=== PATIENT | male | born 1940 | race Caucasian/White ===

== ENCOUNTER 2016-11-26 05:57 | Day surgery (SDC) | payer BC, OTHER ==
[~2016-11-26] VITALS: Ht 165.1 cm; Wt 61.2 kg
[2016-11-26] VITALS (9 sets, daily range): BP systolic 100–120; BP diastolic 61–74
[~2016-11-26 05:57] MED LIST: ASPIR 8181 MG ORAL; Akten 3.5% 1ml Btl ONE; BUSPAR10 MG ORAL; Diclofenac Sod 0.1% Op Soln ONE; Gatifloxacin Opth Solution 0.5% ONE; Phenylephrine 2.5% Op Soln ONE; TAMSULOSIN HCL0.4 MG ORAL; Tobradex Opth Susp 2.5ml ONE; Tropicamide 1% Opth Soln ONE; WELLBUTRIN SR100 MG ORAL; vitamin b12 PO
[2016-11-26] MEDS: Akten 3.5% 1ml Btl LEFT EYE SCH ×3 (06:00→06:52)
[2016-11-26] MEDS: Gatifloxacin Opth Solution 0.5% LEFT EYE SCH ×3 (06:00→06:10)
[2016-11-26] MEDS: Tropicamide 1% Opth Soln LEFT EYE SCH ×3 (06:35→06:52)
[2016-11-26] MEDS: Tobradex Opth Susp 2.5ml LEFT EYE SCH ×3 (06:36→06:52)
[2016-11-26] MEDS: Diclofenac Sod 0.1% Op Soln LEFT EYE SCH ×3 (06:36→06:52)
[2016-11-26] MEDS: Phenylephrine 2.5% Op Soln LEFT EYE SCH ×3 (06:36→06:52)
[2016-11-26] MEDS ORDERED: acetaZOLAMIDE 500mg Inj ONE (07:02)
[2016-11-26] MEDS ORDERED: Dexamethasone 4mg/ml vial ONE (07:02)
[2016-11-26] MEDS ORDERED: BSS 500ml btl ONE (07:02)
[2016-11-26] MEDS ORDERED: Lidocaine 1% MPF 10mg/ml 5ml ONE (07:02)
[2016-11-26] MEDS ORDERED: Carbachol 0.01% Op Soln 1.5ml vial ONE (07:03)
[2016-11-26] MEDS ORDERED: Povidone-Iodine 5% opth solution ONE (07:03)
[2016-11-26] MEDS ORDERED: Sodium Hyaluronate 14 mg/ml 0.85ml ONE (07:04)
[2016-11-26] MEDS ORDERED: BSS 15ml BTL ONE (07:04)
[2016-11-26] MEDS ORDERED: EPINEPHrine 1mg/1ml Amp ONE (07:04)
[2016-11-26] MEDS ORDERED: Midazolam 2mg/2ml Inj ONE (07:30)
[2016-11-26] MEDS ORDERED: Sterile Water Irrig 1000ml IRRIG ONE (07:30)
[2016-11-26] MEDS ORDERED: NS Irrig 1000ml ONE (07:30)
[2016-11-26] MEDS ORDERED: fentaNYL 100 mcg/2 mL IV ONE (07:30)
[2016-11-26] MEDS ORDERED: LR 1000ml ONE (07:30)
--- NOTE | 2016-11-26 07:42 | Pre-Procedure Note/Attestation ---
Pre-Procedure Note/Attestation Complete Prior to Procedure Planned Procedure: left Procedure Narrative: cataract extraction with implant left eye Indications for Procedure Pre-Operative Diagnosis: cataract left eye Attestation I attest that I discussed the nature of the procedure; its benefits; risks and complications; and alternatives (and the risks and benefits of such alternatives ), prior to the procedure, with the patient (or the patient's legal sales representative publications). I attest that, if there was a reasonable possibility of needing a blood transfusion, the patient (or the patient's legal sales representative publications) was given the [facility] standardized written summary, pursuant to the [place] Rud[place] Blood Safety Act ([place] Health and Safety Code # 1645, as amended). I attest that I re-evaluated the patient just prior to the surgery and that there has been no change in the patient's H&P, except as documented below: DULCE BLOCK Nov 26, 2016 07:42
--- NOTE | 2016-11-26 08:17 | Brief Operative Note ---
Immediate Post Operative Note Operative Note Pre-op Diagnosis: cataract left eye Procedure: phacoemulsification of cataract with implant left eye Post-op Diagnosis: same as pre-op Surgeon: dulce salcido C T Tech: none Anesthesiologist: radha archer crna Anesthesia: MAC Specimen: none Complications: none Condition: stable Estimated Blood Loss: none Drains: none Implant(s) used?: Yes DULCE SALCIDO Nov 26, 2016 08:17
--- NOTE | 2016-11-26 08:20 | Immediate Post-Op Evaluation ---
Immediate Post-Op Evalulation Immediate Post-Op Evalulation Procedure: cataract extraction left eye Date of Evaluation: Nov 26, 2016 Time of Evaluation: 08:15 IV Fluids: 200 Blood Pressure Systolic: 112 Blood Pressure Diastolic: 60 Pulse Rate: 60 Respiratory Rate: 14 O2 Sat by Pulse Oximetry: 98 Nausea: No Vomiting: No Complications none Patient Status: awake, reacts, patent Hydration Status: adequate Drug: none ERINRIKARSON FINNEY CRNA Nov 26, 2016 08:20
--- NOTE | 2016-11-26 08:21 | Anethesia Preoperative Eval ---
Anesthesia Pre-op PMH/ROS General Date of Evaluation: Nov 26, 2016 Time of Evaluation: 07:15 Anesthesiologist: gianni ASA Score: ASA 2 Mallampati Score Class I : Soft palate, uvula, fauces, pillars visible Class II: Soft palate, uvula, fauces visible Class III: Soft palate, base of uvula visible Class IV: Only hard plate visible Mallampati Classification: Class II Surgeon: omari Diagnosis: cataract Surgical Procedure: cataract extraction with IOL Anesthesia History: none Family History: no anesthesia problems Allergies: Coded Allergies: MILK (Verified Allergy, Unknown, 05/02/15) Medications: see eMAR Past Medical History Cardiovascular: Denies: CAD, HTN, PR, arrhythmia, other, valve dz Pulmonary: Reports: asthma Gastrointestinal/Genitourinary: Denies: CRI, ESRD, GERD, other Neurologic/Psychiatric: Reports: depression/anxiety Endocrine: Denies: DM, hypothyroidism, other, steroids HEENT: Reports: cataract (L) Hematology/Immune: Denies: DVT, anemia, bleeding disorder, other Musculoskeletal/Integumentary: Denies: DDD, DJD, OA, RA, edema, other Anesthesia Pre-op Phys. Exam Physician Exam Last Vital Signs Date Time Temp Pulse Resp B/P Pulse Ox O2 Delivery O2 Flow Rate FiO2 11/26/16 08:15 59 12 114/73 94 Room Air 11/26/16 08:12 97.8 Constitutional: NAD Neurologic: CN 2-12 intact Cardiovascular: RRR Respiratory: CTA Gastrointestinal: S/NT/ND Airway Exam Mallampati Classification 2 MO: full ROM: full Dentures: no lower, no upper Anesthesia Pre-op A/P Labs normal Studies Pre-op Studies: EKG - sr Risk Assessment & Plan Plan: mac Status Change Before Surgery: No Pre-Antibiotics Drug: none KARSON LOZANO PIPE INSULATOR HELPER Nov 26, 2016 08:21
--- NOTE | 2016-11-26 09:02 | 48 Hour Post Anesthesia Eval ---
Post Anesthesia Evaluation Procedure: cataract extraction left eye Date of Evaluation: Nov 26, 2016 Time of Evaluation: 09:01 Blood Pressure Systolic: 115 0: 65 Pulse Rate: 70 Respiratory Rate: 14 O2 Sat by Pulse Oximetry: 98 Airway: patent Nausea: No Vomiting: No Hydration Status: adequate Mental Status/LOC: patient returned to baseline Follow-up Care/Observations: stable Post-Anesthesia Complications: none Follow-up care needed: N/A KARSON LOZANO CRNA Nov 26, 2016 09:02
--- NOTE | 2016-11-26 11:01 | Operative Note - Dictated ---
DATE OF OPERATION: 11/26/2016 PREOPERATIVE DIAGNOSIS: Cataract, left eye. POSTOPERATIVE DIAGNOSIS: Cataract, left eye. PROCEDURE: Phacoemulsification cataract left eye with placement of posterior chamber intraocular lens. SURGEON: Ted Moore M.D. IN HOME SALES CONSULTANT: None. ANESTHESIA: MAC/topical. ANESTHESIOLOGIST: Rosa M Lawson C.R.N.A. INDICATION FOR PROCEDURE: Poor vision, left eye. DESCRIPTION OF FINDINGS: Nuclear sclerotic and posterior subcapsular cataract, left eye with floppy iris syndrome. DESCRIPTION OF PROCEDURE: The patient received a topical anesthetic block consisting of 3.5% Akten eye drops. The eye was then prepped and draped in usual manner. A lid speculum placed and a Zeiss microscope was positioned. A temporal corneal groove was made with the setve blade. A SuperSharp blade made a stab incision at the 6 o'clock position. A 0.1 mL of 1% nonpreserved intracameral lidocaine was injected. Healon was instilled into the anterior chamber and a 2.8 mm trapezoidal steve blade was used to complete the temporal corneal wound. A cystotome was used to create an anterior capsular flap. Utrata forceps were used to complete the capsulorrhexis. BSS on a cannula was used to hydrodissect the nucleus. The lens nucleus was phacoemulsified in a phaco-fracture technique. Remaining cortical material was removed with the I/A and the posterior capsule polished with the I/A on Cap vac. Healon was reinstilled into the capsular bag and anterior chamber, and an Tavarez foldable one-piece posterior intraocular lens model [id number], power 25.5 diopter, serial #[id number] was placed in the injector. The lens was put in the capsular bag. The I/A tip was used to remove the Healon and position the lens. The wound edge was hydrated with BSS and a blunt-tipped cannula. The wound was checked and found to be watertight. The lid speculum was removed and a drop of TobraDex and Zymaxid was placed. A clear plastic shield was taped over the eye. The patient tolerated the procedure well and left the operating room in good condition. Ted Moore M.D. ([facility]) DR: Radha JOB#: [id number] CC: INA
[2016-11-26] MEDS ORDERED: Tropicamide 1% Opth Soln LEFT EYE SCH (13:30)
[2016-11-26] MEDS ORDERED: Diclofenac Sod 0.1% Op Soln LEFT EYE SCH (13:30)
[2016-11-26] MEDS ORDERED: Phenylephrine 2.5% Op Soln LEFT EYE SCH (13:30)
[2016-11-26] MEDS ORDERED: Akten 3.5% 1ml Btl LEFT EYE SCH (13:30)
[2016-11-26] MEDS ORDERED: Gatifloxacin Opth Solution 0.5% LEFT EYE SCH (13:30)
[2016-11-26] MEDS ORDERED: Tobradex Opth Susp 2.5ml LEFT EYE SCH (13:30)
== END 2016-11-26 10:30 | disposition home or self-care (01) ==
LOC: SUR 05:57
DX: H25.12 Age-related nuclear cataract, left eye (principal); H25.042 Posterior subcapsular polar age-related cataract, left eye; H21.81 Floppy iris syndrome; N40.0 Benign prostatic hyperplasia without lower urinary tract symptoms; F33.0 Major depressive disorder, recurrent, mild; E78.5 Hyperlipidemia, unspecified; N18.3 Chronic kidney disease, stage 3 (moderate); M47.896 Other spondylosis, lumbar region; F41.9 Anxiety disorder, unspecified; K44.9 Diaphragmatic hernia without obstruction or gangrene; E53.8 Deficiency of other specified B group vitamins; Z91.011 Allergy to milk products; Z87.891 Personal history of nicotine dependence; Z79.82 Long term (current) use of aspirin; Z91.81 History of falling
CPT/HCPCS: 66984; J0171; J1100; J2250; J3010; J7120; V2632; 94003; 94150